=== PATIENT | female | born 2000 | race Caucasian/White ===

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

== ENCOUNTER → 2025-01-09 07:47 | Outpatient (CLI) | payer OTHER, SELFPAY ==
--- NOTE | 2025-01-09 07:50 | DI.NM.S_ITS ---
PROCEDURE: NM GASTRIC EMPTYING STUDY RADIOPHARMACEUTICAL: 1 mCi Tc-99m sulfur colloid in an egg sandwich. INDICATIONS: Intractable nausea and vomiting TECHNIQUE: A Tc-99m labeled sulfur colloid labeled egg sandwich or oatmeal was served to the patient. Anterior and posterior planar images of the abdomen were obtained at 0 minutes and 30 minutes, then at hourly intervals up to 4 hours. The patient was upright and ambulating during the interval. COMPARISON: None. FINDINGS: The stomach has normal size, morphology, and position. There is normal emptying of solid gastric contents from the stomach by visual inspection. No gastroesophageal reflux is visualized. The percentage of tracer retained at specific time points are as follows: Time point Percent gastric retention Normal range 30 minutes 50% 70% or more 1 hour 20% 30% to 90% 2 hours 8% 60% or less 3 hours 1% 30% or less IMPRESSION: Moderately rapid gastric emptying. Dictated by: Danial Chen M.D. on 01/09/2025 at 10:20 Approved by: Danial Chen M.D. on 01/09/2025 at 10:21
== END ==
LOC: NUCM 07:49
PROVIDERS: Referring Provider Physician Assistant; Visit Provider Physician Assistant
DX: R11.2 Nausea with vomiting, unspecified (principal)
CPT/HCPCS: 78264; A9541